=== PATIENT | female | born 1945 | race Caucasian/White ===

== ENCOUNTER 2022-10-26 11:59 | Emergency (ER) | payer BC ==
[~2022-10-26] VITALS: Ht 167.6 cm; Wt 77.1 kg
[2022-10-26 12:30] VITALS: BP 143/83
--- NOTE | 2022-10-26 13:28 | NUR ---
TO ER 1, NO APPARENT CHANGE IN CONDITION
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
[2022-10-26] MEDS ORDERED: IBUPROFEN 600 MG TABLET PO ONE (14:30)
[2022-10-26] MEDS ORDERED: LIDOCAINE 5% (PATCH) 1 EA PATCH TP SCH (14:30)
[2022-10-26] MEDS ORDERED: LIDOCAINE 5% (PATCH) 1 EA PATCH TP ONE (14:43)
[2022-10-26] MEDS ORDERED: IBUPROFEN 400 MG TABLET ONE (14:44)
[2022-10-26] MEDS ORDERED: IBUPROFEN 600 MG TABLET ONE (14:46)
--- NOTE | 2022-10-26 14:56 | NUR ---
Patient discharged to home in stable condition. Written and verbal after care instructions given. Patient verbalizes understanding of instruction.
== END 2022-10-26 15:00 | disposition home or self-care (01) ==
LOC: ER 12:01
DX: M54.6 Pain in thoracic spine (principal); I10 Essential (primary) hypertension
CPT/HCPCS: 71045-TC